=== PATIENT | male | born 1955 | race Caucasian/White ===

== ENCOUNTER 2018-07-10 10:48 | Emergency (ER) | payer OTHER ==
[~2018-07-10] VITALS: Ht 165.1 cm; Wt 67.3 kg
[2018-07-10 10:50] VITALS: BP 141/73; PULSE 88; RESP 18; Ht 165.1 cm; Wt 67.3 kg
--- NOTE | 2018-07-10 12:02 | ERD ---
ER Documentation Chief Complaint Chief Complaint rt foot pain h/o gout , no injury HPI 63-year-old male, with a history of diabetes and hypertension, presents to the emergency department, complaining of a gradual onset of right foot pain since approximately 0800 this morning, described as constant, throbbing, moderate, non-radiating, with no alleviating or exacerbating factors. Otherwise, patient denies any fever, chills, recent trauma or falls, ankle pain, knee pain, numbness, or weakness. Patient reports that he eats shrimp daily. ROS All systems reviewed and are negative except as per history of present illness. Medications Home Meds Active Scripts Hydrocodone/Acetaminophen (Bad Axe 5-325 Tablet) 1 Each Tablet, 1 TAB PO QHS PRN for PAIN, #7 TAB Prov:GABRIELA DENTON MD 07/10/18 Ibuprofen* (Motrin*) 400 Mg Tab, 400 MG PO Q8, #15 TAB Prov:GABRIELA DENTON MD 07/10/18 Prednisone* (Prednisone*) 20 Mg Tab, 40 MG PO DAILY for 4 Days, TAB Prov:GABRIELA DENTON MD 07/10/18 Allergies Allergies: Coded Allergies: No Known Allergy (Unverified , 07/10/18) PMhx/Soc Hx Miscellaneous Medical Probl: Yes (DM,HTN,HIH CHOL,GOUT) Hx Alcohol Use: No Hx Substance Use: No Hx Tobacco Use: No Smoking Status: Never smoker FmHx Family History: diabetes; No coronary disease Physical Exam Vitals Vital Signs Date Temp Pulse Resp B/P (MAP) Pulse Ox O2 O2 Flow FiO2 Time Delivery Rate 07/10/18 98.0 88 18 141/73 95 10:50 (95) Physical Exam Const: No acute distress Head: Atraumatic Eyes: Normal Conjunctiva ENT: Normal External Ears, Nose and Mouth. Neck: Full range of motion. No meningismus. Resp: Clear to auscultation bilaterally Cardio: Regular rate and rhythm, no murmurs Abd: Soft, non tender, non distended. Normal bowel sounds Skin: No petechiae or rashes Back: No midline or flank tenderness Ext: No cyanosis, or edema. Erythema and warmth of the right 1st metatarsal with tenderness to palpation, but no edema FROM of the toes and ankles. 5/5 motor strength. Sensation intact. Capillary refill less than 2 seconds. Neur: Awake and alert Psych: Normal Mood and Affect Results 24 hrs Current Medications Medications Dose Sig/Brenda Start Time Status Last (Trade) Ordered Route PRN Stop Time Admin Dose Reason Admin Prednisone 60 mg ONCE ONCE 07/10/18 DC (Prednisone) PO 12:30 07/10/18 12:33 Ibuprofen 400 mg ONCE ONCE 07/10/18 DC (Motrin) PO 12:30 07/10/18 12:33 1 tab ONCE ONCE 07/10/18 DC Acetaminophen PO 12:30 / 07/10/18 12:33 Hydrocodone Bitart (Bad Axe (5/325)) Procedures/MDM Acute right great toe pain, Differential diagnosis include but not limited to: toe sprain/strain, ligament injury, gout, RA, osteoarthritis; low suspicion for fracture, dislocation, septic arthritis. Neurovascular exam grossly intact. no clinical findings suggestive of acute infectious process, no deformity, no rashes. Physical examination and clinical presentation consistent most likely with acute gout arthritis. During the ED course the patient received treatment with prednisone PO, ibuprofen PO, and Bad Axe PO, presenting overall improvement of the symptoms. Treatment options, results and clinical impression discussed with patient who agrees with management. The patient is stable to be treated outpatient and will be discharged home with recommendations for ice, rest and elevation. NSAIDs 3 times daily for 5 days and close monitoring. The patient was instructed to follow up with the primary care provider in the next 48h. If symptoms persist, worsen or new symptoms develop, then patient should return to the ED immediately. Instructions explained and given to patient with acknowledgment and demonstrated understanding. Disclaimer: Inadvertent spelling and grammatical errors are likely due to EHR/dictation software use and do not reflect on the overall quality of patient care. Also, please note that the electronic time recorded on this note does not necessarily reflect the actual time of the patient encounter. Departure Diagnosis: Primary Impression: Gouty arthritis of right great toe Condition: Stable Additional Instructions: Thank you very much for allowing us to participate in your care. Your health and safety is our top priority at [facility]. Call your primary care doctor TOMORROW for an appointment during the next 2-4 days and bring all the information and medications prescribed. Have prescriptions filled and follow precisely the directions on the label. If the symptoms get worse and your provider is unavailable, return to the Emergency Department immediately. GABRIELA DENTON MD Jul 10, 2018 12:02
[2018-07-10] MEDS ORDERED: predniSONE 20 MG TAB PO ONE (12:30)
[2018-07-10] MEDS ORDERED: HYDROCODONE/APAP (5/325) TAB PO ONE (12:30)
[2018-07-10] MEDS ORDERED: IBUPROFEN 200 MG TAB PO ONE (12:30)
[2018-07-10] MEDS ORDERED: IBUP-1561 PO (12:33)
[2018-07-10] MEDS ORDERED: HYDR-4011 PO (12:33)
[2018-07-10] MEDS ORDERED: PRED20TA PO (12:33)
== END 2018-07-10 13:07 | disposition home or self-care (01) ==
LOC: FTE 10:48
DX: M10.071 Idiopathic gout, right ankle and foot (principal); E11.9 Type 2 diabetes mellitus without complications; I10 Essential (primary) hypertension
CPT/HCPCS: J7512; Z7502; Z7610; 99283